=== PATIENT | female | born 1980 | race Asian ===

== ENCOUNTER 2019-02-23 12:40 | Outpatient (CLI) | payer BC, MEDICAID ==
[2019-02-23 13:10] LABS: APPEARANCE,URINE SLIGHTLY-CLOUDY; BILIRUBIN,URINE NEGATIVE (NEGATIVE); COLOR,URINE YELLOW; GLUCOSE, URINE NEGATIVE (NEGATIVE); KETONES,URINE TRACE mg/dL (NEGATIVE); LEUKOCYTE ESTERASE,URINE NEGATIVE (NEGATIVE); NITRITE,URINE NEGATIVE (NEGATIVE); PROTEIN,URINE NEGATIVE (NEGATIVE); URINE SPECIFIC GRAVITY 1.021; UROBILINOGEN,URINE NEGATIVE mg/dL (<2.0)
[2019-02-23] MEDS ORDERED: DEXTROSE 5%-LACTATED RINGERS 500 ML IV PRN (13:13)
[2019-02-23] MEDS ORDERED: RINGERS SOLUTION,LACTATED 1,000 ML IV ONE (13:13)
[2019-02-23] MEDS ORDERED: HYDROXYZINE PAMOATE 50 MG CAPSULE PO ONE (13:14)
[2019-02-23 13:44] LABS: URINE AMPHETAMINES SCREEN NEGATIVE; URINE BARBITURATES SCREEN NEGATIVE; URINE BENZODIAZEPINES SCREEN NEGATIVE; URINE COCAINE SCREEN NEGATIVE; URINE MARIJUANA (THC) SCREEN NEGATIVE; URINE METHADONE SCREEN NEGATIVE; URINE PHENCYCLIDINE SCREEN NEGATIVE
[2019-02-23] MEDS ORDERED: HYDROXYZINE PAMOATE 50 MG CAPSULE ONE (13:49)
--- NOTE | 2019-02-23 14:31 | Non Stress Test Report ---
Non Stress Test Datetime Report Generated by CPN: 02/23/2019 14:31 INDICATION Indication for Study: Other Indication for Study (NST) Other: Pt states contractions URINE RESULTS Urine Protein, NST: Negative Urine Ketones - NST: Positive Urine Glucose - NST: Negative Urine Blood - NST: Negative MONITORING Monitor Explained: Monitor Explained; Test Explained Monitor Explained: Monitor Explained; Test Explained; Patient Verbalized Understanding Time on Monitor: 02/23/2019 13:24 Time off Monitor: 02/23/2019 13:58 NST Duration: 34 NST INTERVENTIONS NST Interventions: PO Hydration; IV Fluids NST Interventions: PO Hydration Physician Notified NST: GisselleSreedhar Jain CN Physician Notified NST: Gisselle Jain CNAxel BABY A: [id number] BABY A Movement : Present FHR Baseline : 135 Accelerations : 15X15 Decelerations : None Variability : Moderate 6-25bpm NST Review: Meets Criteria for Reactive NST NST Review and Verified By : Letitia Lyn [facility] NST Results: Reactive NST REPORT Report Trigger: Send Report
== END 2019-02-23 14:33 | disposition home or self-care (01) ==
LOC: LC 12:40
PROVIDERS: ATTEND Obstetrics & Gynecology
PROC: 4A1HXCZ Monitoring of Products of Conception, Cardiac Rate, External Approach (ICD-10-PCS; principal; 2019-02-23)
DX: O47.1 False labor at or after 37 completed weeks of gestation (principal); O09.523 Supervision of elderly multigravida, third trimester; Z3A.39 39 weeks gestation of pregnancy
CPT/HCPCS: 59025; 80307; 81005

== ENCOUNTER 2019-02-24 02:20 | Inpatient (IN) | payer BC, MEDICAID ==
[2019-02-24 02:41] LABS: APPEARANCE,URINE SLIGHTLY-CLOUDY; BILIRUBIN,URINE NEGATIVE (NEGATIVE); COLOR,URINE YELLOW; GLUCOSE, URINE NEGATIVE (NEGATIVE); KETONES,URINE 20 mg/dL (NEGATIVE); LEUKOCYTE ESTERASE,URINE SMALL (NEGATIVE); NITRITE,URINE NEGATIVE (NEGATIVE); PROTEIN,URINE 30 mg/dL (NEGATIVE); URINE SPECIFIC GRAVITY 1.008; UROBILINOGEN,URINE NEGATIVE mg/dL (<2.0)
[2019-02-24] MEDS: RINGERS SOLUTION,LACTATED 1,000 ML IV PRN ×2 (02:48→03:49)
[2019-02-24 03:02] LABS: URINE AMPHETAMINES SCREEN NEGATIVE; URINE BARBITURATES SCREEN NEGATIVE; URINE BENZODIAZEPINES SCREEN NEGATIVE; URINE COCAINE SCREEN NEGATIVE; URINE MARIJUANA (THC) SCREEN NEGATIVE; URINE METHADONE SCREEN NEGATIVE; URINE PHENCYCLIDINE SCREEN NEGATIVE
[2019-02-24 03:09] LABS: ABSOLUTE LYMPHOCYTES (AUTO) 1.2 10^3/uL (0.5-4.7); ABSOLUTE MONOCYTES (AUTO) 0.4 10^3/uL (0.1-1.4); ABSOLUTE NEUT (AUTO) 10.1 10^3/uL (1.7-8.2); BASOPHILS % (AUTO) 0.4 % (0-2); EOSINOPHILS % (AUTO) 0.2 % (0-6); HEMATOCRIT 35.1 % (36.0-47.0); HEMOGLOBIN 12.1 g/dL (12.0-15.5); LYMPHOCYTES % (AUTO) 10.1 % (13-45); MEAN CORPUSCULAR HEMOGLOBIN 29.7 pg (27.0-33.4); MEAN CORPUSCULAR HGB CONC 34.4 g/dL (32.0-36.0); MEAN CORPUSCULAR VOLUME 86 fl (80-97); MONOCYTES % (AUTO) 3.7 % (3-13); PLATELET COUNT 179 10^3/uL (150-450); RED BLOOD COUNT 4.08 10^6/uL (3.72-5.28); RED CELL DISTRIBUTION WIDTH 14.9 % (11.5-14.0); SEGMENTED NEUTROPHILS % (AUTO) 85.6 % (42-78); TOTAL CELLS COUNTED % (AUTO) 100 %; WHITE BLOOD COUNT 11.8 10^3/uL (4.0-10.5)
[2019-02-24] MEDS ORDERED: BUPIVACAINE HCL 0.25 % INJ/PF (2.5 MG/1 ML) 30 ML VIAL ONE (03:30)
[2019-02-24] MEDS ORDERED: FENTANYL/BUPIVACAINE/NS/PF 300 MCG/150 ML RTUINJ EPI ONE (03:30)
[2019-02-24] MEDS ORDERED: EPHEDRINE SULFATE INJ 50 MG/1 ML AMPULE ONE (03:30)
[2019-02-24] MEDS ORDERED: OXYTOCIN/NORMAL SALINE 20 UNIT/1,000 ML RTUINJ ONE (03:31)
[2019-02-24] MEDS ORDERED: LIDOCAINE 1.5%/EPINEPHRINE INJ 5 ML AMP ONE (03:31)
[2019-02-24] MEDS ORDERED: LIDOCAINE 1% INJ-PF (10 MG/ML) 30 ML SDV ONE (03:31)
[2019-02-24] MEDS ORDERED: MISOPROSTOL 0.2 MG TABLET ONE (03:31)
[2019-02-24] MEDS ORDERED: FENTANYL CITRATE INJ/PF 100 MCG/2 ML AMPUL ONE (03:54)
--- NOTE | 2019-02-24 07:19 | Admission Physical ---
Datetime Report Generated by CPN: 02/24/2019 07:18 CURRENT ADMISSION Chief Complaint: Uterine Contractions Indication for Induction: Not Applicable Admit Impression : Term, Intrauterine ; Active Labor Admit Plan: Admit to Unit; Initiate Labor Protocol ALLERGIES Medication Allergies: No Medication Allergies: No Known Allergies (02/24/2019) Latex: No Latex Allergies OBSTETRICAL HISTORY EDC: 02/27/2019 00:00 : 2 Para: 1 Term: 1 : 0 SAB: 0 IAB: 0 Ectopic: 0 Livin Cesareans: 1 VBACs: 0 Multiple Births: 0 Gestational Diabetes: No Rh Sensitization: No Incompetent Cervix: No KEMI: No Infertility: No ART Treatment: No Uterine Anomaly: No IUGR: No Hx Previous C/S: Yes Macrosomia: No Hx Loss/Stillborn: No PIH: No Hx : No Placenta Previa/Abruption: No Depression/PP Depression: No PTL/PROM: No Post Hemorrhage: No Current Procedures: Ultrasound; NST Obstetrical History Comments: G1- 2014 @ 39wks Emergency with 1st d/t decrease in HR G2-Current SEE RECORDS Alcohol: No Marijuana : No Cocaine: No Other Illicit Drugs: No Cigarettes: Never Smoker. 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 after she has all of her children; x ; wisdom teeth removed-2005 INFECTIOUS HISTORY Gonorrhea: No Genital Herpes: No Chlamydia: No Tuberculosis: No Syphilis: No Hepatitis: No HIV/AIDS Exposure: No Rash or Viral Illness: No HPV: Yes Infectious History Comments: HPV-abnormal pap PHYSICAL EXAM General: Normal HEENT: Normal Neurologic: Normal Thyroid: Normal Heart: Normal Lungs: Normal Breast: Deferred Back: Normal Abdomen: Normal Genitourinary Exam: Normal Extremities: Normal DTRs: Normal Pelvic Type: Adequate Vital Signs: Reviewed VAGINAL EXAM Dilatation: 6 Effacement: 90 Station: -1 MEMBRANES Pooling: Negative Membranes: Intact FETUS A EGA: 39.4 Monitoring: External US FHR- Baseline: 120 Variability: Moderate 6-25bpm Decelerations: None FHR Category: Category I Presentation: Vertex Admit Comment: She wishes to try to today. We will see how she progresses PLANS FOR LABOR AND DELIVERY Labor and Delivery: None Pain Management: None Other Pain Management Plans: planned c/s Feeding Preference: Breast Benefit of Breast Feed Discussed: Yes Circumcision: N/A INFORMED CONSENT Signature: with User ID: [email or web address]
[2019-02-24] MEDS ORDERED: PROMETHAZINE HCL INJ 25 MG/1 ML VIAL IV PRN (16:02)
[2019-02-24] MEDS ORDERED: NA PHOS,M-B/NA PHOS,DI-BA (ADULT) 133 ML ENEMA PR PRN (16:02)
[2019-02-24] MEDS ORDERED: OXYTOCIN/NORMAL SALINE 20 UNIT/1,000 ML RTUINJ IV PRN (16:02)
[2019-02-24] MEDS ORDERED: ACETAMINOPHEN 650 MG SUPP.RECT PR PRN (16:02)
[2019-02-24] MEDS ORDERED: ACETAMINOPHEN WITH CODEINE #3 TABLET PO PRN ×2 (16:02)
[2019-02-24] MEDS ORDERED: MEASLES,MUMPS&RUBELLA VACC/PF 0.5 ML VIAL SUBCUT PRN (16:02)
[2019-02-24] MEDS ORDERED: PSEUDOEPHEDRINE HCL 30 MG TABLET PO PRN (16:02)
[2019-02-24] MEDS ORDERED: DIBUCAINE 1% OINTMENT 56 GM TP PRN (16:02)
[2019-02-24] MEDS ORDERED: DIPH/PERTUSS(ACELL)/TETANUS VAC/PF 0.5 ML SYR (>=10YO) IM PRN (16:02)
[2019-02-24] MEDS ORDERED: PROMETHAZINE HCL 25 MG TABLET PO PRN (16:02)
[2019-02-24] MEDS ORDERED: PROMETHAZINE HCL 25 MG SUPP.RECT PR PRN (16:02)
[2019-02-24] MEDS ORDERED: BENZOCAINE/MENTHOL AEROSOL SPRAY 56 ML TOP PRN (16:02)
[2019-02-24] MEDS ORDERED: DIPHENHYDRAMINE HCL 25 MG CAPSULE PO PRN (16:02)
[2019-02-24] MEDS ORDERED: GLYCERIN/WITCH HAZEL LEAF 1 EACH MED..PAD TP PRN (16:02)
[2019-02-24] MEDS ORDERED: MAGNESIUM HYDROXIDE SUSP 30 ML UDCUP PO PRN (16:02)
[2019-02-24] MEDS ORDERED: ZOLPIDEM TARTRATE 5 MG TABLET PO PRN (16:02)
[2019-02-24] MEDS ORDERED: IBUPROFEN 800 MG TABLET ONE (16:43)
--- NOTE | 2019-02-24 18:07 | Delivery Summary ---
Del Sum A-C Datetime Report Generated by CPN: 02/24/2019 18:06 DELIVERY PERSONNEL DELIVERY PERSONNEL: [id number] Delivery Doctor:: Alicia Sanchez CNM Labor and Delivery Nurse:: Herminio Browne RN Labor and Delivery Nurse:: Leah Trinidad RN Extractor Filler/PHOTOGRAPHER ASSISTANT: Mikayla Ch, ST Additional Personnel: : Mary Lyn RNC MATERNAL INFORMATION Delivery Anesthesia: Epidural Medications After Delivery: Pitocin Drip 20 Units/1000ml NSS Meds After Delivery Comment: Pitocin 20 units in 1000ml bolusing Estimated Blood Loss (ml): 100 Maternal Complications: None Provider Comments: Successful w of viable female in vertex OA to YANY at 1528 under epidural anesthesia. 3-vessel cord. Apgars 9-9. Spontaneous respirtations and cry. Cord clamped x2 after 2 min delay, then cut by FOB. Placenta, membranes, and cord expelled at 1537, Sandhu apparently intact. 1st degree vaginal tear repaired as noted above. Uterus firm at U-2. Patient tolerated procedure well. LABOR SUMMARY EDC: 02/27/2019 00:00 No. Babies in Womb: 1 Attempted: No Labor Anesthesia: Epidural LABOR INFORMATION Reason for Induction: Not Applicable Onset of Labor: 02/24/2019 02:30 Complete Dilatation: 02/24/2019 14:06 Oxytocin: N/A Group B Beta Strep: Negative Steroids Given: None Reason Steroids Not Administered: Not Applicable MEMBRANES Membranes Rupture Method: Spontaneous Rupture of Membranes: 02/24/2019 12:11 Length of Rupture (hr): 3.28 Amniotic Fluid Color: Clear Amniotic Fluid Amount: Moderate Amniotic Fluid Odor: Normal STAGES OF LABOR Stage 1 hr: 11 Stage 1 min: 36 Stage 2 hr: 1 Stage 2 min: 22 Stage 3 hr: 0 Stage 3 min: 9 Total Time in Labor hr: 13 Total Time in Labor min: 7 VAGINAL DELIVERY Episiotomy: None Laceration #1: Vaginal Laceration Extension #1: First Degree Laceration Repair: Yes Laceration Repair Note: Repaired with 2-0 vicryl using interrupted stitches Sponge Count Correct: N/A Sharps Count Correct: Yes CSECTION DELIVERY Primary Indication: N/A Secondary Indication: N/A CSection Incidence: N/A Labor: N/A Elective: N/A CSection Incision: N/A BABY A INFORMATION Delivery Date/Time: 02/24/2019 15:28 Method of Delivery: Vaginal Born in Route : No : Successful Forceps: N/A Vacuum Extraction: N/A Shoulder Dystocia : No PRESENTATION/POSITION BABY A Presentation: Cephalic Cephalic Presentation: Vertex Vertex Position: Left Occipital Posterior Breech Presentation: N/A PLACENTA INFORMATION BABY A Placenta Delivery Time : 02/24/2019 15:37 Placenta Method of Delivery: Spontaneous Placenta Status: Delivered SCORES BABY A Heart Rate 1 min: >100 bpm Resp Effort 1 min: Good Cry Reflex Irritability 1 min: Cough or Sneeze or Pulls Away Muscle Tone 1 min: Active Motion Color 1 min: Body [place], Extremities Blue Resuscitation Effort 1 min: Tactile Stimulation SCORE 1 MIN: 9 Heart Rate 5 min: >100 bpm Resp Effort 5 min: Good Cry Reflex Irritability 5 min: Cough or Sneeze or Pulls Away Muscle Tone 5 min: Active Motion Color 5 min: Body [place], Extremities Blue Resuscitation Effort 5 min: N/A SCORE 5 MIN: 9 INFORMATION BABY A Gestational Age at Delivery: 39.4 Gestational Status: Full Term- 39- 40.6 Weeks Infant Outcome : Liveborn Infant Condition : Stable Infant Sex: Female IDENTIFICATION BABY A Infant Verification Date/Time: 02/24/2019 15:58 ID Band Number: [id number] Mother's Name Verified: Yes RN Verifying : C. Felt RN M. Puttkamer RN WEIGHT/LENGTH BABY A Infant Birthweight (gm): 3039 Infant Weight (lb): 6 Infant Weight (oz): 11 Infant Length (in): 19.50 Infant Length (cm): 49.53 CORD INFORMATION BABY A No. Cord Vessels: 3 Nuchal Cord : N/A Cord Blood Taken: Yes-For Storage (Mom's Blood type +) Infant Suction: None ASSESSMENT BABY A Infant Complications: None Physical Findings at Delivery: Laceration Infant Respirations: Appears Normal Skin to Skin: No Skin to Skin Time (min): 80 Photographer Assistant/ALS Called : No Infant Care By: S Camp RNC Transferred To: Remains with Mother BABY B INFORMATION : N/A SIGNATURES Assignment: Jero Mccarthy MD Signature: with User ID: [email or web address] : with User ID: Destinee : I personally evaluated and examined the patient in conjunction with the MLP and agree with the assessment, treatment plan and disposition.
[2019-02-24] MEDS: FERROUS SULFATE 325 MG TABLET PO SCH (18:30)
[2019-02-24] MEDS: DOCUSATE SODIUM 100 MG CAPSULE PO SCH (18:30)
[2019-02-24] MEDS: IBUPROFEN 800 MG TABLET PO SCH (22:32)
[2019-02-24] MEDS: FAMOTIDINE 20 MG TABLET PO SCH (22:32)
[2019-02-25] MEDS: IBUPROFEN 800 MG TABLET PO SCH ×3 (05:49→21:43)
[2019-02-25 08:04] LABS: HEMATOCRIT 33.1 % (36.0-47.0); HEMOGLOBIN 11.5 g/dL (12.0-15.5); MEAN CORPUSCULAR HEMOGLOBIN 30.4 pg (27.0-33.4); MEAN CORPUSCULAR HGB CONC 34.9 g/dL (32.0-36.0); MEAN CORPUSCULAR VOLUME 87 fl (80-97); PLATELET COUNT 164 10^3/uL (150-450); RED BLOOD COUNT 3.79 10^6/uL (3.72-5.28); RED CELL DISTRIBUTION WIDTH 15.4 % (11.5-14.0); WHITE BLOOD COUNT 10.1 10^3/uL (4.0-10.5)
[2019-02-25] MEDS: DOCUSATE SODIUM 100 MG CAPSULE PO SCH ×2 (09:22→17:26)
[2019-02-25] MEDS: FERROUS SULFATE 325 MG TABLET PO SCH ×2 (09:22→17:26)
[2019-02-25] MEDS: PRENATAL VITAMIN W DHA CAPSULE PO SCH (09:22)
[2019-02-25] MEDS: FAMOTIDINE 20 MG TABLET PO SCH ×2 (09:22→21:42)
[2019-02-25] MEDS: SENNOSIDES/DOCUSATE 8.6-50 MG 1 EACH TABLET PO SCH (09:22)
--- NOTE | 2019-02-25 09:33 | PDOC PROGRESS REPORT ---
Subjective-OB Progress Note for:: 02/25/19 Subjective: Doing well, no c.o, pain under control, voiding, , hsb in room Physical Exam (OB) Vital Signs: Temp Pulse Resp BP Pulse Ox 97.8 F 71 22 H 126/76 H 99 02/25/19 07:37 02/25/19 07:37 02/25/19 07:37 02/25/19 07:37 02/25/19 07:37 Intake & Output 02/24/19 02/25/19 02/26/19 06:59 06:59 06:59 Intake Total 1433 807 Balance 1433 807 Weight 80.5 kg - PIH/Pre-Eclampsia Clonus: Negative Headache: Absent Epigastric Pain: No Visual Changes: No - Lochia Lochia Amount: Small 10-25 ml Lochia Color: Rubra/Red - Abdomen Description: Soft, Round Fundal Description: Firm Fundal Height: u/u - u/2 Objective-Diagnostic Laboratory: 02/25/19 07:35 02/25/19 07:35 WBC 10.1 RBC 3.79 Hgb 11.5 L Hct 33.1 L MCV 87 MCH 30.4 MCHC 34.9 RDW 15.4 H Plt Count 164 Assessment and Plan(PN) - Assessment and Plan (1) Gestational [-induced] hypertension without significant proteinuria, unspecified trimester Is this a current diagnosis for this admission?: Yes (2) Vaginal after () Is this a current diagnosis for this admission?: Yes - Time Spent with Patient Time with patient: Less than 15 minutes Medications reviewed and adjusted accordingly: Yes - Disposition Anticipated Discharge: Home Within: within 24 hours
[2019-02-25] MEDS ORDERED: ACETAMINOPHEN 325 MG TABLET ONE (13:20)
[2019-02-25] MEDS ORDERED: ACETAMINOPHEN 325 MG TABLET PO PRN (13:23)
[2019-02-26] MEDS: IBUPROFEN 800 MG TABLET PO SCH (06:04)
--- NOTE | 2019-02-26 08:12 | PDOC PROGRESS REPORT ---
Subjective-OB Progress Note for:: 02/26/19 Subjective: doing well, ready to go home Physical Exam (OB) Vital Signs: Temp Pulse Resp BP Pulse Ox 97.9 F 74 16 133/84 H 99 02/25/19 19:36 02/25/19 19:36 02/25/19 19:36 02/25/19 19:36 02/25/19 19:36 Intake & Output 02/25/19 02/26/19 02/27/19 06:59 06:59 06:59 Intake Total 807 250 Balance 807 250 - PIH/Pre-Eclampsia Clonus: Negative Headache: Absent Epigastric Pain: No Visual Changes: No - Lochia Lochia Amount: Scant < 10 ml Lochia Color: Rubra/Red - Abdomen Description: Soft Hernia Present: No Fundal Description: Firm, Midline Fundal Height: u/u - u/2 Objective-Diagnostic Laboratory: 02/25/19 07:35 Assessment and Plan(PN) - Assessment and Plan (1) Gestational [-induced] hypertension without significant proteinuria, unspecified trimester Is this a current diagnosis for this admission?: Yes (2) Vaginal after () Is this a current diagnosis for this admission?: Yes - Time Spent with Patient Time with patient: Less than 15 minutes Medications reviewed and adjusted accordingly: Yes - Disposition Anticipated Discharge: Home Within: within 24 hours
--- NOTE | 2019-02-26 08:15 | PDOC DISCHARGE SUMMARY ---
Final Diagnosis Discharge Date: 02/26/19 - Final Diagnosis (1) Gestational [-induced] hypertension without significant proteinuria, unspecified trimester Is this a current diagnosis for this admission?: Yes (2) Vaginal after () Is this a current diagnosis for this admission?: Yes Discharge Data - Discharge Medication Home Medications: No.137/Iron/Folic Acd [ Vitamin Tablet] 1 tab PO DAILY 07/17/15 Gestational Age: 39.2 Reason(s) for Admission: Onset of Labor, Procedures: NST, Ultrasound Intrapartum Procedure(s): Spontaneous Vaginal Delivery Complication(s): Laceration-Vaginal Laceration-Degree: 1st - Diagnosis Test Laboratory: Temp Pulse Resp BP Pulse Ox 97.9 F 74 16 133/84 H 99 02/25/19 19:36 02/25/19 19:36 02/25/19 19:36 02/25/19 19:36 02/25/19 19:36 02/24/19 02/24/19 02/25/19 02:28 03:00 07:35 RBC 4.08 3.79 Hgb 12.1 11.5 L Hct 35.1 L 33.1 L Urine Opiates Screen NEGATIVE - Discharge information/Instructions Discharge Activity: Activity As Tolerated, No Lifting Over 10 Pounds, No Lifting/Push/Pulling, Non-Ambulatory Child Discharge Diet: As Tolerated, Regular Disposition: HOME, SELF-CARE Follow up with: [facility] in: 2, Weeks
[2019-02-26 08:23] VITALS: BP 144/79
[2019-02-26] MEDS: FERROUS SULFATE 325 MG TABLET PO SCH (10:39)
[2019-02-26] MEDS: PRENATAL VITAMIN W DHA CAPSULE PO SCH (10:39)
[2019-02-26] MEDS: FAMOTIDINE 20 MG TABLET PO SCH (10:39)
[2019-02-26] MEDS: SENNOSIDES/DOCUSATE 8.6-50 MG 1 EACH TABLET PO SCH (10:39)
[2019-02-26] MEDS: DOCUSATE SODIUM 100 MG CAPSULE PO SCH (10:39)
== END 2019-02-26 11:40 | disposition home or self-care (01) | DRG 807 ==
LOC: LC 02:20 → LR 02:42 → 2S 17:59
PROVIDERS: ADMIT Obstetrics & Gynecology; ATTEND Obstetrics & Gynecology
PROC: 10E0XZZ Delivery of Products of Conception, External Approach (ICD-10-PCS; principal; 2019-02-24)
PROC: 0HQ9XZZ Repair Perineum Skin, External Approach (ICD-10-PCS; 2019-02-24)
DX: O13.4 Gestational [pregnancy-induced] hypertension without significant proteinuria, complicating childbirth (principal); Z37.0 Single live birth; O34.219 Maternal care for unspecified type scar from previous cesarean delivery; O70.0 First degree perineal laceration during delivery; Z3A.39 39 weeks gestation of pregnancy
CPT/HCPCS: 36415; 59025; 80307; 81005; 85025; 85027; 86592; 86850; 86900; 86901; 88307; 94760; J2590; J3010; J3490